=== PATIENT | female | born 1995 | race Two or more races ===

== ENCOUNTER 2024-11-28 17:26 | Emergency (ER) | payer SELFPAY ==
[~2024-11-28] VITALS: Ht 167.6 cm; Wt 177.0 kg
--- NOTE | 2024-11-28 17:48 | ED.PDOC ---
History of Present Illness HPI Comments 29-year-old female who comes in with chief complaint of left ankle pain as well as left foot pain. The patient states that she fell down approximately 1-1/2 weeks ago and now is complaining of the pain. The patient does have lymphedema to the left lower extremity. That has been going on for the past two years. The patient was brought in by wheelchair. The patient states that the pain is somewhat to stabbing in nature. She denies any shortness a breath, nausea or vomiting. The patient is accompanied in the emergency department's by her . Time Seen by MD: 17:43 Reviewed Notes: Nurses Notes, Medications, Allergies (No allergies to m edications) Allergies: Uncoded Allergies: TREE NUTS (Allergy, Unknown, 11/28/24) Home Meds Active Scripts Hydrocodone-Acetaminophen (Hydrocodone Bitartrate/AC 5-325 mg) 1 Tab Tab, 1 TAB PO Q8HP PRN for 5 Days, #15 TAB Prov:VIKI ROBBINS MD 11/28/24 Information Source: Patient, Spouse Mode of Arrival: Wheelchair Severity: Moderate Timing: Days Duration: Since onset Prehospital treatment: None Location: Left ankle and left foot pain Past Medical History PAST MEDICAL HISTORY: DM, Liver (Fatty liver) Past Medical History (Other): Lymphedema to the left lower extremity, chronic pain syndrome Surgical History: Tonsillectomy Surgical History (Other): Eye surgery DOCUMENTATION LEAD History: No Pertinent DOCUMENTATION LEAD History Family History Family History: Family hx of DM, Family hx of heart radhames Social History Smoker: Non-Smoker Alcohol: Occasionally Drugs: Marijuana Lives In: Home Physical Exam General Appearance: No Apparent Distress, Obese HEENT: Normal ENT Inspection, Pharynx Normal, TMs Normal Neck: Full Range of Motion, Non-Tender, Normal, Normal Inspection Respiratory: Chest Non-Tender, Lungs Clear, No Accessory Muscle Use, No Respiratory Distress, Normal Breath Sounds Cardiovascular: No Edema, No JVD, No Murmur, No Gallop, Normal Peripheral Pulses, Regular Rate/Rhythm Breast Exam: Deferred Gastrointestinal: No Organomegaly, Non Tender, No Pulsatile Mass, Normal Bowel Sounds, Soft Genitalia: Deferred Pelvic: Deferred Rectal: Deferred Extremities: No calf tenderness, Normal capillary refill, Normal inspection, Normal range of motion, Non-tender, No pedal edema Musculoskeletal : Location: Left Extremity Location: Leg Apperance: Tenderness: Moderate, Other (Lymphedema to the left lower extremity) Neurologic: Alert, theatre director II-XII nml as Tested, Motor Weakness, Normal Affect, Normal Mood, No Sensory Deficits Cerebellar Function: Normal Reflexes: Normal Skin: Dry, Normal Color, Warm Lymphatic: No Adenopathy Was a procedure done? Was a procedure done?: No Differential Dx Considerations may include: Lymphedema, fracture, sprain X-Ray, Labs, Meds, VS Vital Signs Date Time Temp Pulse Resp B/P (MAP) Pulse Ox O2 Delivery O2 Flow Rate FiO2 11/28/24 18:27 84 20 96 Room Air* 0 21 11/28/24 17:49 98.8 107 16 112/42 (65) 98 98.8 Lab Test 11/28/24 18:11 Range/Units Urine Color Light-yellow Yellow Urine Clarity Turbid H Clear Urine pH 5.0 5.0-9.0 Urine Specific [place] 1.018 1.001-1.035 Urine Protein Negative Negative Urine Ketones Negative Negative Urine Blood 2+ H Negative /uL Urine Nitrite Negative Negative Urine Bilirubin Negative Negative Urine Urobilinogen Normal Negative mg/dL Urine Leukocyte Esterase Trace Negative /uL Urine RBC 4 0 - 4 /hpf Urine Microscopic WBC 6 H 0-5 /HPF Urine Squamous Epithelial Cells Mod <5 /hpf Urine Bacteria Few H None Seen /hpf Urine Mucus Few None Seen Urine Glucose Normal Normal mg/dL Urine Test Negative Negative Current Medications Medications (Trade) Dose Ordered Sig/Yfn Route Start Time Stop Time Status Last Admin Acetaminophen/ Hydrocodone Bitart ([place] 5/325MG Tab) 1 tab ONCE ONCE PO 11/28/24 18:00 11/28/24 18:01 DC 11/28/24 18:27 The urine test is positive for UTI Ultrasound of the left lower extremity is negative for DVT The patient was given [place] for the pain The patient is an x-ray of the left ankle is negative for any fracture The patient is discharged and will follow up with the primary care doctor The patient will return to the emergency department's if the condition worsens Images Reviewed?: Images reviewed and evaluated by me Time of 1ST Reevaluation: 17:48 Reevaluation 1ST: Unchanged Patient Education/Counseling: Diagnosis, Treatment, Prognosis, Need For Follow Up Family Education/Counseling: Diagnosis, Treatment, Prognosis, Need For Follow Up SEPSIS Sepsis Screen Physician Orders L Ankle 3 View (11/28/24 17:43) Lt Lower Dvt (11/28/24 17:43) Vital Signs Date Time Temp Pulse Resp B/P (MAP) Pulse Ox O2 Delivery O2 Flow Rate FiO2 11/28/24 18:27 84 20 96 Room Air* 0 21 11/28/24 17:49 98.8 107 16 112/42 (65) 98 98.8 Medications Medications Dose Ordered Sig/Yfn Route Start Time Stop Time Status Last Admin Dose Admin Acetaminophen/ Hydrocodone Bitart 1 tab ONCE ONCE PO 11/28/24 18:00 11/28/24 18:01 DC 11/28/24 18:27 Departure 1 Departure Time of Disposition: 19:13 Impression: Primary Impression: Left ankle sprain Qualified Codes: S93.402A - Sprain of unspecified ligament of left ankle, initial encounter Additional Impression: UTI (urinary tract infection) Qualified Codes: N30.00 - Acute cystitis without hematuria Disposition: 01 HOME / SELF CARE / HOMELESS Condition: Fair e-Prescriptions Hydrocodone-Acetaminophen (Hydrocodone Bitartrate/AC 5-325 mg) 1 Tab Tab 1 TAB PO Q8HP PRN for 5 Days, #15 TAB Prov: VIKI ROBBINS MD 11/28/24 Discharged With: Self Critical Care Note Critical Care Time?: No Stability Stability form required: No Heart Score Heart Score: Heart Score Response (Comments) Value History N/A 0 EKG N/A 0 Age N/A 0 Risk Factors N/A 0 Troponin N/A 0 Total 0 VIKI ROBBINS MD Nov 28, 2024 17:48
--- NOTE | 2024-11-28 18:12 | DVH ---
Clinical History: pain Comparison: None Technique: Duplex Doppler evaluation of the deep venous system of the left lower extremity from the common femor al vein to the popliteal vein including color Doppler and spectral/pulsed waveform analysis was perfo rmed. Findings: The common femoral vein demonstrates appropriate compressibility and waveform variability. There is compressibility/patency of the great saphenous vein at the proximal thigh. The femoral vein demonstrates appropriate compressibility and waveform variability. The deep femoral vein demonstrates appropriate compressibility and waveform variability. The popliteal vein demonstrates appropriate compressibility and waveform variability. There is normal compressibility at the tibioperoneal trunk. Impression: 1. No left deep venous thrombosis. 2. If clinical concern/symptoms persist or worsen, short-interval follow-up study is suggested.
[2024-11-28 18:27] VITALS: PULSE 84; RESP 20; O2SAT 96
[2024-11-28] MEDS: HYDROcodone-ACET 5/325MG TAB PO ONE (18:27)
[2024-11-28 18:39] LABS: Urine Protein, UAD Negative (Negative)
[2024-11-28] MEDS ORDERED: HYDR-4902 PO (18:52)
--- NOTE | 2024-11-28 19:11 | DVH ---
CLINICAL INDICATION: trauma TECHNIQUE: 3 radiographic views of the left ankle were obtained. Comparison: None FINDINGS/IMPRESSION: Bony structures appear in normal alignment. There are no acute fractures. There are no radiopaque foreign bodies.
[2024-11-28 19:36] VITALS: BP 103/75; PULSE 109; RESP 18; TEMP 98.2; O2SAT 96
[2024-11-28] MEDS ORDERED: CIPR-173 PO (19:58)
== END 2024-11-28 19:37 | disposition home or self-care (01) ==
LOC: ER 17:26
DX: S93.402A Sprain of unspecified ligament of left ankle, initial encounter (principal); N39.0 Urinary tract infection, site not specified; E11.9 Type 2 diabetes mellitus without complications; Z90.89 Acquired absence of other organs; Z98.890 Other specified postprocedural states; Z79.899 Other long term (current) drug therapy; W19.XXXA Unspecified fall, initial encounter; Y93.89 Activity, other specified; Y92.89 Other specified places as the place of occurrence of the external cause; Y99.8 Other external cause status
CPT/HCPCS: 73610; 81001; 81025; 93971

== ENCOUNTER 2025-01-04 19:24 | Emergency (ER) | payer MEDICAID, OTHER ==
[~2025-01-04] VITALS: Ht 167.6 cm; Wt 182.0 kg
[~2025-01-04 19:24] MED LIST: CIPR-173 PO; HYDR-4902 PO
--- NOTE | 2025-01-04 20:02 | ED.PDOC ---
HPI Comments 29 year old female presents to the ED with a chief complaint of chest pain onset today (01/04/25) about 1 hour prior to ED arrival. Patient states she is currently experiencing chest pain described as a sharp pain as well as palpitations. She experienced similar symptoms in the past, was told it was due to anxiety. She went to [facility] prior to ED arrival, was recommended to come to ED for cardiac workup. PMHx anxiety, DM. Denies shortness of breath, dizziness, fever, chills, cough, congestion, abdominal pain, nausea, vomiting, diarrhea. No other symptoms or modifying factors present at this time. Chief Complaint: Syncope Time Seen by MD: 19:50 Reviewed Notes: Medications, Allergies Allergies: Uncoded Allergies: TREE NUTS (Allergy, Unknown, 11/28/24) Home Meds Active Scripts Ciprofloxacin Hcl (Cipro) 500 Mg Tab, 1 TAB PO BID, #14 TAB Prov:VIKI ROBBINS MD 11/28/24 Hydrocodone-Acetaminophen (Hydrocodone Bitartrate/AC 5-325 mg) 1 Tab Tab, 1 TAB PO Q8HP PRN for 5 Days, #15 TAB Prov:VIKI ROBBINS MD 11/28/24 Information Source: Patient, Spouse Mode of Arrival: Wheelchair Severity: Moderate Timing: Hours Duration: Since onset Prehospital treatment: None Location: Chest (L) Radiation: No Radiation Quality: Pressure Onset: At Rest Cardiac Risk Factors: Diabetes PE Risk Factors: None History of: Similar pain in past Modifying Factors: Nothing Associated Signs and Symptoms: Palpitations Past Medical History PAST MEDICAL HISTORY: Anxiety, DM, Liver Surgical History: Tonsillectomy MEDICAL CONCIERGE History: No Pertinent MEDICAL CONCIERGE History Family History Family History: Family hx of DM, Family hx of heart radhames Social History Smoker: Non-Smoker Alcohol: Occasionally Drugs: Marijuana Lives In: Home Constitutional: denies: chills, diaphoresis, fatigue, fever, malaise, sweats, weakness, others EENTM: denies: blurred vision, double vision, ear bleeding, ear discharge, ear drainage, ear pain, ear ringing, eye pain, eye redness, hearing loss, mouth pain, mouth swelling, nasal discharge, nose bleeding, nose congestion, nose pain, photophobia, tearing, throat pain, throat swelling, voice changes, others Respiratory: denies: cough, hemoptysis, orthopnea, SOB at rest, shortness of breath, SOB with excertion, stridor, wheezing, others Cardiovascular: reports: chest pain, palpitations; denies: dizzy spells, diaphoresis, Dyspnea on exertion, edema, irregular heart beat, left arm pain, lightheadedness, PND, syncope, others Gastrointestinal: denies: abdomen distended, abdominal pain, blood streaked bowels, constipated, diarrhea, dysphagia, difficulty swallowing, hematemesis, melena, nausea, poor appetite, poor fluid intake, rectal bleeding, rectal pain, vomiting, others Genitourinary: denies: abnormal vagina bleeding, burning, dyspareunia, dysuria, flank pain, frequency, hematuria, incontinence, pain, , vagina dischar ge, urgency, others Neurological: denies: dizziness, fainting, headache, left sided numbness, left sided weakness, numbness, paresthesia, pre-existing deficit, right sided numbness, right sided weakness, seizure, speech problems, tingling, tremors, weakness, others Musculoskeletal: denies: back pain, gout, joint pain, joint swelling, muscle pain, muscle stiffness, neck pain, others Integumetry: denies: bruises, change in color, change in hair/nails, dryness, laceration, lesions, lumps, rash, wounds, others Allergic/Immunocompromised: denies: Difficulty Healing, Frequent Infections, Hives, Itching, others Hematologic/Lymphatic: denies: anemia, blood clots, easy bleeding, easy bruising, swollen glands, others Endocrine: denies: excessive hunger, excessive sweating, excessive thirst, excessive urination, flushing, intolerance to cold, intolerance to heat, unexplained weight gain, unexplained weight loss, others Psychiatric: denies: anxiety, bipolar disorder, depression, hopeless, panic disorder, schizophrenia, sleepless, suicidal, others All Other Systems: Reviewed and Negative Physical Exam General Appearance: Normal HEENT: Normal ENT Inspection, Pharynx Normal, TMs Normal Neck: Full Range of Motion, Non-Tender, Normal, Normal Inspection Respiratory: Chest Non-Tender, Lungs Clear, No Accessory Muscle Use, No Respiratory Distress, Normal Breath Sounds Cardiovascular: No Edema, No JVD, No Murmur, No Gallop, Normal Peripheral Pulses, Regular Rate/Rhythm Breast Exam: Deferred Gastrointestinal: No Organomegaly, Non Tender, No Pulsatile Mass, Normal Bowel Sounds, Soft Genitalia: Deferred Pelvic: Deferred Rectal: Deferred Extremities: No calf tenderness, Normal capillary refill, Normal inspection, Normal range of motion, Non-tender, No pedal edema Musculoskeletal : Apperance: Normal Neurologic: Alert, rod straightener II-XII nml as Tested, No Motor Deficits, Normal Affect, Normal Mood, No Sensory Deficits Cerebellar Function: Normal Reflexes: Normal Skin: Dry, Normal Color, Warm Lymphatic: No Adenopathy EKG EKG : Pulse Rate (adult): 81 Cardiac Rhythm: NSR Was a procedure done? Was a procedure done?: No CP Differential Dx Differential Diagnosis: A-fib, A-Flutter, Angina, Heart Failure, AK, Pulmonary Embolus, Ventricular Dysrhythmia, V-Fib, V-Tach, Other X-Ray, Labs, Meds, VS Vital Signs Date Time Temp Pulse Resp B/P (MAP) Pulse Ox O2 Delivery O2 Flow Rate FiO2 01/04/25 23:18 85 20 96 Room Air 01/04/25 22:43 98.2 85 16 105/70 (82) 95 98.2 01/04/25 20:11 81 01/04/25 19:44 81 01/04/25 19:26 98.3 87 18 104/43 96 98.3 Lab Test 01/04/25 21:07 01/04/25 20:56 01/04/25 20:20 Range/Units Troponin I High Sensitivity < 3 L < 3 L </=34 ng/L Urine Color Light-yellow Yellow Urine Clarity Turbid H Clear Urine pH 5.5 5.0-9.0 Urine Specific [place] 1.015 1.001-1.035 Urine Protein Negative Negative Urine Ketones Negative Negative Urine Blood 3+ H Negative /uL Urine Nitrite Negative Negative Urine Bilirubin Negative Negative Urine Urobilinogen Normal Negative mg/dL Urine Leukocyte Esterase Trace Negative /uL Urine RBC 1 0 - 4 /hpf Urine Microscopic WBC 7 H 0-5 /HPF Urine Squamous Epithelial Cells Mod <5 /hpf Urine Bacteria Few H None Seen /hpf Urine Glucose Normal Normal mg/dL White Blood Count 11.4 H 4.4-10.8 10^3/uL Red Blood Count 5.43 H 4.0-5.20 10^6/uL Hemoglobin 14.5 12.2-16.2 g/dL Hematocrit 43.7 36.0-46.0 % Mean Corpuscular Volume 80.4 80.0-100.0 fL Mean Corpuscular Hemoglobin 26.7 L 28.0-32.0 pg Mean Corpuscular Hemoglobin Concent 33.2 32.0-36.0 g/dL Red Cell Distribution Width 14.8 H 11.8-14.3 % Platelet Count 331 140-450 10^3/uL Mean Platelet Volume 9.3 6.9-10.8 fL Neutrophils (%) (Auto) 63.8 37.0-80.0 % Lymphocytes (%) (Auto) 28.8 10.0-50.0 % Monocytes (%) (Auto) 4.7 0.0-12.0 % Eosinophils (%) (Auto) 1.9 0.0-7.0 % Basophils (%) (Auto) 0.8 0.0-2.0 % Neutrophils # (Auto) 7.3 1.6-8.6 10 ^3/uL Lymphocytes # (Auto) 3.3 0.4-5.4 10 ^3/uL Monocytes # (Auto) 0.5 0-1.3 10 ^3/uL Eosinophils # (Auto) 0.2 0-0.8 10 ^3/uL Basophils # (Auto) 0.1 0-0.2 10 ^3/uL Nucleated Red Blood Cells 0.2 % Sodium Level 139 136-145 mmol/L Potassium Level 3.8 3.5-5.1 mmol/L Chloride Level 103 98-107 mmol/L Carbon Dioxide Level 30 20-31 mmol/L Anion Gap 6 5-15 Blood Urea Nitrogen 9 9-23 mg/dL Creatinine 0.73 0.550-1.02 mg/dL Glomerular Filtration Rate Calc 116 >90 mL/min BUN/Creatinine Ratio 12.3 10.0-20.0 Serum Glucose 126 H 74-106 mg/dL Calcium Level 9.1 8.7-10.4 mg/dL Magnesium Level 1.8 1.6-2.6 mg/dL Time of 1ST Reevaluation: 20:20 Reevaluation 1ST: Unchanged Patient Education/Counseling: Diagnosis, Treatment, Prognosis Family Education/Counseling: Diagnosis, Treatment, Prognosis Additional Information The following tests were ordered, and results were reviewed by me: TROP -x3, EKG, UA, MAGNESIUM, BMP, PREGUA Additional Information was gathered from interviewing the following independent historians: spouse I discussed treatment and results with medical personnel and: patient and spouse Comprehensive systems review obtained and negative except for what is stated in the HPI. SEPSIS Sepsis Screen Date sepsis recognized/suspect: Jan 04, 2025 Time Sepsis recognized/suspect: 1933 Recent Procedure: No On Antibiotic Therapy: No Respiratory Rate >20: No Heart Rate >90: No Temp<36 C (96.8 F) or >38.3 C: No SBP <90 or MAP <65 mmHG: No New Acute Mental Status Change: No Is the patient on CPAP, BIPAP,: No Physician Orders Electrocardigram (01/04/25 19:43) Urine (01/04/25 ) Vital Signs Date Time Temp Pulse Resp B/P (MAP) Pulse Ox O2 Delivery O2 Flow Rate FiO2 01/04/25 23:18 85 20 96 Room Air 01/04/25 22:43 98.2 85 16 105/70 (82) 95 98.2 01/04/25 20:11 81 01/04/25 19:44 81 01/04/25 19:26 98.3 87 18 104/43 96 98.3 Laboratory Tests Test 01/04/25 20:20 White Blood Count 11.4 10^3/uL (4.4-10.8) H Departure 1 Departure Time of Disposition: 22:00 Impression: Primary Impression: Atypical chest pain Disposition: 01 HOME / SELF CARE / HOMELESS Condition: Stable Discharged With: Self Critical Care Note Critical Care Time?: No Stability Stability form required: No Heart Score Heart Score: Heart Score Response (Comments) Value History Slightly Suspicious 0 EKG Normal 0 Age <45 0 Risk Factors No known risk factors 0 Troponin Normal limit 0 Total 0 I personally scribed for DEBI FROST MD ([email or web address]) on 01/04/25 at 20:02. Electronically submitted by Elvia Alexander ([email or web address]). I personally scribed for DEBI FROST MD ([email or web address]) on 01/04/25 at 20:11. Electronically submitted by Elvia Alexander ([email or web address]). DEBI FROST MD Jan 04, 2025 20:02
[2025-01-04 20:35] LABS: Hematocrit 43.7 % (36.0-46.0); Hemoglobin 14.5 g/dL (12.2-16.2); Mean Corpuscular Hemoglobin 26.7 pg (28.0-32.0); Mean Corpuscular Volume 80.4 fL (80.0-100.0); Nucleated Red Blood Cells % 0.2 %
[2025-01-04 20:43] LABS: Chloride 103 mmol/L (98-107); Potassium 3.8 mmol/L (3.5-5.1); Sodium 139 mmol/L (136-145)
[2025-01-04 20:44] LABS: Anion Gap 6 (5-15); Calcium 9.1 mg/dL (8.7-10.4); Carbon Dioxide 30 mmol/L (20-31)
[2025-01-04 20:49] LABS: BUN/Creatinine Ratio 12.3 (10.0-20.0)
[2025-01-04 20:50] LABS: Magnesium 1.8 mg/dL (1.6-2.6)
[2025-01-04 21:19] LABS: Blood Urea Nitrogen 9 mg/dL (9-23); Glucose 126 mg/dL (74-106)
[2025-01-04 22:33] LABS: Urine Protein, UAD Negative (Negative)
[2025-01-04 22:43] VITALS: BP 105/70; TEMP 98.2
[2025-01-04 23:18] VITALS: PULSE 85; RESP 20; O2SAT 96
--- NOTE | 2025-01-05 10:57 | ECG ---
[facility] Test Date: 2025-01-04 Test Time: 19:44:11 Pat Name: RONY SANTIAGO Department: ED Room: Gender: F Certified Adapted Physical Educator: YESICA : 1995 Requested By: DEBI FROST Order Number: [id number] Reading MD: Kodi Jurado Measurements Intervals [place] Rate: 81 P: 41 AL: 151 QRS: 33 QRSD: 114 T: 17 QT: 386 QTc: 448 Interpretive Statements Sinus rhythm Borderline intraventricular conduction delay Electronically Signed On 01-05-2025 22:30:35 PDT by Kodi Jurado Please click the below link to view image of tracing.
== END 2025-01-04 23:22 | disposition home or self-care (01) ==
LOC: ER 19:24
DX: R07.89 Other chest pain (principal); F41.9 Anxiety disorder, unspecified; E11.9 Type 2 diabetes mellitus without complications; Z90.89 Acquired absence of other organs; Z79.899 Other long term (current) drug therapy
CPT/HCPCS: 36415; 80048; 81001; 82947; 83735; 84484; 85025; 93005